=== PATIENT | male | born 1980 | race Caucasian/White ===

== ENCOUNTER → 2020-03-10 | Outpatient (CLI) | payer SELFPAY ==
--- NOTE | 2020-03-10 12:29 | Diagnostic Imaging Report ---
TECHNIQUE: Computed tomography imaging of the LEFT ANKLE was performed WITHOUT injected contrast. Dose modulation, iterative reconstruction, and/or weight based adjustment of the mA/kV was utilized to reduce the radiation dose to as low as reasonably achievable. COMPARISON: None available. HISTORY: Ankle pain, history of fracture. FINDINGS: No fracture. No lytic or blastic lesion. Mild ankle degenerative arthrosis with small amount of gas in the joint space, incidental finding. Small calcaneal enthesophytes. Soft tissues are unremarkable. Visualized tendons are in normal anatomic position. No soft tissue mass or fluid collection. IMPRESSION: No acute osseous abnormality Mild ankle joint degenerative arthrosis Signed by: Dr. Prem Drew M.D. on 03/10/2020 12:25 PM
== END ==
LOC: CT 11:20
PROVIDERS: ATTEND Family Medicine
DX: S92.102A Unspecified fracture of left talus, initial encounter for closed fracture (principal); M25.572 Pain in left ankle and joints of left foot; M25.372 Other instability, left ankle